=== PATIENT | male | born 1945 | race Caucasian/White ===

== ENCOUNTER 2016-08-29 08:42 | Day surgery (SDC) | payer OTHER ==
[~2016-08-29] VITALS: Ht 179.1 cm; Wt 90.7 kg
[~2016-08-29 08:42] MED LIST: ADVAIR 100/501 DISK IH; FISH OIL 1,0001 EAC7 PO; FLECAINIDE ACET50 MG PO; PRADAXA150 MG PO; PRILOSEC20 MG PO
[2016-08-29 09:30] VITALS: BP 112/79
[2016-08-29] MEDS ORDERED: NORCO 5/3251 TABLET PO (11:49)
[2016-08-29 13:10] VITALS: BP 106/49
[2016-08-29 13:52] VITALS: BP 107/65
== END 2016-08-29 14:11 | disposition home or self-care (01) ==
LOC: SDC
PROC: 0YU60JZ Supplement Left Inguinal Region with Synthetic Substitute, Open Approach (ICD-10-PCS; principal; 2016-08-29)
DX: K40.90 Unilateral inguinal hernia, without obstruction or gangrene, not specified as recurrent (principal); I48.91 Unspecified atrial fibrillation; K21.9 Gastro-esophageal reflux disease without esophagitis; J45.909 Unspecified asthma, uncomplicated; Z82.49 Family history of ischemic heart disease and other diseases of the circulatory system; Z80.1 Family history of malignant neoplasm of trachea, bronchus and lung; Z79.01 Long term (current) use of anticoagulants
CPT/HCPCS: C1781; J0690; J1100; J2250; J2405; J3010

== ENCOUNTER → 2017-08-10 | Outpatient (CLI) | payer OTHER ==
[~2017-08-10] MED LIST changes: +NORCO 5/3251 TABLET PO; +TAMBOCOR50 MG PO
[2017-08-10 08:54] LABS: HEMATOCRIT 46.2 % (38.0-50.0); HEMOGLOBIN 15.8 G/DL (12.5-16.6); MCH 30.4 PG (29.0-34.0); MCHC 34.2 G/DL (30.0-36.0); MCV 88.8 FL (86-99); PLATELET COUNT 169 K/uL (156-360); RBC DIS.WIDTH-CV 13.3 % (11.8-14.6); RBC DIS.WIDTH-SD 43.3 % (39-53); WHITE BLOOD COUNT 3.9 K/uL (4.1-10.2)
[2017-08-10 09:02] LABS: PTT 32.9 SEC (25-37)
[2017-08-10 12:24] LABS: APPEARANCE HAZY-YELLOW; BODY FLUID EOSINOPHILS 0 % (0-25); BODY FLUID RBC'S 2000 /MM^3 (0-100); BODY FLUID WBC'S 418 /MM^3 (0-500); MONONUCLEAR WBC'S 99 %; POLYNUCLEAR WBC'S 1 % (0-25)
== END | disposition home or self-care (01) ==
LOC: OPR 08:24 → EDSTATUS 09:00
PROVIDERS: Radiology Diagnostic Radiology; Surgery
PROC: 0J9C3ZX Drainage of Pelvic Region Subcutaneous Tissue and Fascia, Percutaneous Approach, Diagnostic (ICD-10-PCS; principal; 2017-08-10)
DX: R10.31 Right lower quadrant pain (principal); Z90.79 Acquired absence of other genital organ(s); Z98.890 Other specified postprocedural states; Z87.19 Personal history of other diseases of the digestive system; I48.91 Unspecified atrial fibrillation; Z82.49 Family history of ischemic heart disease and other diseases of the circulatory system; Z80.1 Family history of malignant neoplasm of trachea, bronchus and lung; Z88.5 Allergy status to narcotic agent
CPT/HCPCS: 77012; 85027; 85610; 85730; 87070; 87075; 87205; 89051